=== PATIENT | male | born 1965 | race Caucasian/White ===

== ENCOUNTER 2019-06-21 17:52 | Emergency (ER) | payer MEDICAID ==
[~2019-06-21] VITALS: Ht 160 cm; Wt 59.0 kg
[2019-06-21 17:56] VITALS: Ht 160 cm; Wt 59.0 kg
[2019-06-21 18:32] LABS: BASOPHIL % 0.5 % (0-2); PLATELET COUNT 251 x10^3mcL (130-400); RED CELL DISTRIBUTION WIDTH 13.1 % (11.5-14.5)
[2019-06-21 18:41] LABS: CALCIUM 8.3 mg/dL (8.5-10.1); CARBON DIOXIDE 22.7 mmol/L (21-32); CHLORIDE SERUM 98 mmol/L (98-107); CREATININE SERUM 1.1 mg/dL (0.7-1.3); GFR1 > 60 mL/min; GLUCOSE SERUM 121 mg/dL (74-106); POTASSIUM SERUM 3.1 mmol/L (3.5-5.1); SODIUM SERUM 133 mmol/L (136-145)
[2019-06-21 18:46] LABS: ALBUMIN 3.5 g/dL (3.4-5.0); ALKALINE PHOSPHATASE 125 U/L (46-116); ALT/SGPT 55 U/L (16-63); AST/SGOT 43 U/L (15-37); BILIRUBIN TOTAL 0.31 mg/dL (0.20-1.00); TOTAL PROTEIN, SERUM 7.9 g/dL (6.4-8.2)
[2019-06-21 19:01] LABS: microscopic required? YES; urine erythrocyte 1+ (NEGATIVE)
[2019-06-21 20:44] LABS: AMPHETAMINE QUAL UR POSITIVE (See below)
[2019-06-21 21:54] VITALS: BP 91/67
== END 2019-06-21 21:54 | disposition left against medical advice (07) ==
LOC: ED 17:52
PROVIDERS: Emergency Medicine
DX: J40 Bronchitis, not specified as acute or chronic (principal); E86.0 Dehydration; F15.10 Other stimulant abuse, uncomplicated; F17.210 Nicotine dependence, cigarettes, uncomplicated; Z88.0 Allergy status to penicillin
CPT/HCPCS: 87804; J3490; J7030; Q0092